=== PATIENT | male | born 1965 | race Hispanic/Latino ===

== ENCOUNTER 2024-03-15 13:04 | Emergency (ER) | payer BC ==
[~2024-03-15] VITALS: Ht 172.7 cm; Wt 71.7 kg
[2024-03-15 14:08] LABS: BASOPHILS 0.9 % (0-2); EOSINOPHILS 2.6 % (0-6); HEMATOCRIT 37.2 % (35.0-50.0); HEMOGLOBIN 12.5 g/dL (12.0-18.0); LYMPHOCYTES 36.9 % (24-44); MCH 31.2 (27-36); MCHC 33.7 g/dl (30-36); MCV 92.5 fl (81-99); MONOCYTES 11.7 % (0-12); NEUTROPHILS 47.9 % (39-80); PLATELET COUNT 144 K/uL (140-440); RBC 4.02 M/ul (4.3-5.7); RDW 12.5 (10.5-15.0)
[2024-03-15 14:29] LABS: ALBUMIN 3.3 g/dL (3.4-5.0); ALBUMIN/GLOBULIN RATIO 0.69 (1.1-2.4); ANION GAP 12.6 (7-21); BILIRUBIN, TOTAL 0.5 ng/dL (0.2-1.0); BUN/CREATININE RATIO 16.54 (6.0-28.6); CALCIUM 9.1 mg/dL (8.5-10.1); CREATININE, SERUM 1.33 mg/dL (0.70-1.30); POTASSIUM 4.6 mmol/L (3.5-5.1); PROTEIN, TOTAL 8.1 g/dL (6.4-8.2)
[2024-03-15] MEDS ORDERED: HYDROCODON-ACE1 EA10 PO (14:57)
[2024-03-15] MEDS ORDERED: HYDROCODONE/ACETA 5/325 TAB PO ONE (15:30)
[2024-03-15 15:31] VITALS: BP 137/84
--- OUTSIDE RECORDS SUMMARY | 2024-03-15 15:32 | XMS ---
PreManage Notification: GRACE CHAMPION [employer] Events No recent Security Events currently on file CRITERIA MET - [facility] [place] - 2 Visits in 30 Days CARE PROVIDERS -Gin- Dentist: Database Consultant [facility] PHONE: [phone] Dion has no Care Guidelines for this patient. Cat VISIT COUNT (12 MO.) [address] TOTAL 7 NOTE: Visits indicate total known visits. ED/UCC VISIT TRACKING (12 MO.) 03/15/2024 13:06 [facility] [place] TYPE: Emergency COMPLAINT: - RT LEG INJURY 03/11/2024 15:05 [facility] [place] TYPE: Emergency DIAGNOSES: - Pain in right lower leg - leg pain 02/12/2024 08:58 [facility] [place] TYPE: Emergency DIAGNOSES: - Acute cystitis with hematuria - PAIN WHEN URINATING 02/10/2024 07:45 [facility] [place] TYPE: Emergency DIAGNOSES: - Acute kidney failure, unspecified - Acute upper respiratory infection, unspecified - Hyperglycemia, unspecified - VOMITING BACK PAIN COUGH CHILLS DIARRHEA TROUBLE BREATHING 04/08/2023 10:11 [facility] [place] TYPE: Emergency DIAGNOSES: - Hyperglycemia, unspecified - Pneumonia, unspecified organism - DIZZY COUGH CHILLS WEAKNESS RAM BODY ACHES 04/02/2023 14:23 [facility] [place] TYPE: Emergency DIAGNOSES: - Dizziness and giddiness - Influenza due to unidentified influenza virus with other respiratory manifestations - WEAKNESS NOT FEELING WELL DIABETIC PATIENT 03/29/2023 18:22 [facility] [place] TYPE: Emergency DIAGNOSES: - Influenza due to other identified influenza virus with other respiratory manifestations - Pain in right knee - VOMITING CHILLS INPATIENT VISIT TRACKING (12 MO.) No inpatient visits to display in this time frame [email or web address]
== END 2024-03-15 15:32 | disposition home or self-care (01) ==
LOC: ED 13:04
PROVIDERS: Emergency Medicine
DX: E10.42 Type 1 diabetes mellitus with diabetic polyneuropathy (principal); E10.621 Type 1 diabetes mellitus with foot ulcer; L97.519 Non-pressure chronic ulcer of other part of right foot with unspecified severity; Z79.4 Long term (current) use of insulin
CPT/HCPCS: 36415; 80053; 85025; 99283